=== PATIENT | female | born 1945 | race Two or more races ===

== ENCOUNTER 2019-06-12 07:55 | Emergency (ER) | payer OTHER ==
[~2019-06-12] VITALS: Ht 167.6 cm; Wt 48.1 kg
[2019-06-12] MEDS ORDERED: PROAIR HFA8.5 GM IH (08:03)
[2019-06-12] MEDS ORDERED: SINGULAIR10 MG PO (08:04)
[2019-06-12] MEDS ORDERED: HYDROCODONE-CH115 ML PO (09:25)
== END 2019-06-12 09:39 | disposition home or self-care (01) ==
LOC: ER 07:55
DX: J43.8 Other emphysema (principal)

== ENCOUNTER 2019-09-16 17:00 | Emergency (ER) | payer OTHER ==
[~2019-09-16] VITALS: Ht 149.9 cm; Wt 48.5 kg
[~2019-09-16 17:00] MED LIST: HYDROCODONE-CH115 ML PO; PROAIR HFA8.5 GM IH; SINGULAIR10 MG PO
[2019-09-16] MEDS ORDERED: SINGULAIR10 MG (17:34)
[2019-09-16] MEDS ORDERED: VERELAN180 MG (17:34)
[2019-09-16] MEDS ORDERED: CRESTOR5 MG (17:35)
[2019-09-16] MEDS ORDERED: ECOTRIN81 MG (17:35)
[2019-09-16] MEDS ORDERED: LEVOTHYROXINE25 MCG (17:36)
[2019-09-16] MEDS ORDERED: PROBIOTIC1 EAC1 (17:37)
[2019-09-16] MEDS ORDERED: BEVESPI AEROS10.7 GM (17:38)
[2019-09-16] MEDS ORDERED: [UNRECOGNIZED DRUG - OTHER] (17:38)
== END 2019-09-16 19:47 | disposition home or self-care (01) ==
LOC: ER 17:00
DX: Z03.818 Encounter for observation for suspected exposure to other biological agents ruled out (principal); B34.9 Viral infection, unspecified; R06.02 Shortness of breath

== ENCOUNTER 2020-04-14 08:01 | Outpatient (CLI) | payer OTHER ==
[~2020-04-14 08:01] MED LIST changes: +BEVESPI AEROS10.7 GM; +CRESTOR5 MG; +ECOTRIN81 MG; +LEVOTHYROXINE25 MCG; +PROBIOTIC1 EAC1; +SINGULAIR10 MG; +VERELAN180 MG; +[UNRECOGNIZED DRUG - OTHER]
== END 2020-04-14 08:15 | disposition home or self-care (01) ==
LOC: RX STUDY 08:01
PROVIDERS: ATTEND Internal Medicine Gastroenterology
DX: K21.9 Gastro-esophageal reflux disease without esophagitis (principal); R10.13 Epigastric pain

== ENCOUNTER 2020-12-01 12:05 | Outpatient (CLI) | payer OTHER | END 2020-12-01 12:21 | disposition home or self-care (01) | LOC: SONOGRAMA 12:05 | PROVIDERS: ATTEND Internal Medicine | DX: M54.2 Cervicalgia (principal); M46.1 Sacroiliitis, not elsewhere classified; M25.551 Pain in right hip; M25.552 Pain in left hip; N23 Unspecified renal colic ==

== ENCOUNTER 2021-05-24 13:56 | Outpatient (CLI) | payer OTHER | END 2021-05-24 14:18 | disposition home or self-care (01) | LOC: RAD 13:56 | PROVIDERS: ATTEND Internal Medicine Sports Medicine | DX: R10.84 Generalized abdominal pain (principal) ==

== ENCOUNTER 2021-09-20 17:50 | Emergency (ER) | payer OTHER ==
[~2021-09-20] VITALS: Ht 180.3 cm; Wt 53.1 kg
[2021-09-20] MEDS ORDERED: CELEXA20 MG (18:47)
== END 2021-09-21 01:02 | disposition home or self-care (01) ==
LOC: ER 17:50
DX: J44.1 Chronic obstructive pulmonary disease with (acute) exacerbation (principal); J44.0 Chronic obstructive pulmonary disease with (acute) lower respiratory infection; I11.0 Hypertensive heart disease with heart failure; I50.1 Left ventricular failure, unspecified; Z88.0 Allergy status to penicillin; Z91.011 Allergy to milk products; Z79.82 Long term (current) use of aspirin; Z20.822 Contact with and (suspected) exposure to COVID-19

== ENCOUNTER 2021-12-29 08:42 | Outpatient (CLI) | payer OTHER ==
[~2021-12-29 08:42] MED LIST changes: +CELEXA20 MG
== END 2021-12-29 08:47 | disposition home or self-care (01) ==
LOC: RX STUDY 08:42
PROVIDERS: ATTEND Otolaryngology
DX: R13.14 Dysphagia, pharyngoesophageal phase (principal)

== ENCOUNTER 2022-01-17 10:24 | Emergency (ER) | payer OTHER ==
[~2022-01-17] VITALS: Ht 147.3 cm; Wt 50.8 kg
== END 2022-01-17 16:00 | disposition home or self-care (01) ==
LOC: ER 10:24
DX: K59.00 Constipation, unspecified (principal); R10.84 Generalized abdominal pain; I10 Essential (primary) hypertension; Z88.0 Allergy status to penicillin; Z91.011 Allergy to milk products

== ENCOUNTER 2022-07-04 08:09 | Emergency (ER) | payer OTHER ==
[~2022-07-04] VITALS: Ht 147.3 cm; Wt 49.0 kg
[2022-07-04] MEDS ORDERED: PROTONIX40 MG (08:23)
== END 2022-07-04 15:19 | disposition home or self-care (01) ==
LOC: ER 08:09
DX: K59.00 Constipation, unspecified (principal); K57.30 Diverticulosis of large intestine without perforation or abscess without bleeding; N20.0 Calculus of kidney; E03.9 Hypothyroidism, unspecified; Z88.0 Allergy status to penicillin; Z91.011 Allergy to milk products

== ENCOUNTER 2022-09-28 14:18 | Emergency (ER) | payer OTHER ==
[~2022-09-28] VITALS: Ht 147.3 cm; Wt 47.2 kg
[~2022-09-28 14:18] MED LIST changes: +PROTONIX40 MG
[2022-09-28] MEDS ORDERED: XANAX0.25 MG (15:15)
[2022-09-28] MEDS ORDERED: LASIX20 MG (15:16)
[2022-09-28] MEDS ORDERED: CRESTOR5 MG (15:16)
[2022-09-28] MEDS ORDERED: VERELAN PM100 MG (15:16)
[2022-09-28] MEDS ORDERED: PROTONIX40 MG (15:16)
[2022-09-28] MEDS ORDERED: CELEXA40 MG (15:16)
[2022-09-28] MEDS ORDERED: SYNTHROID50 MCG (15:18)
== END 2022-09-28 21:15 | disposition home or self-care (01) ==
LOC: ER 14:18
DX: J44.1 Chronic obstructive pulmonary disease with (acute) exacerbation (principal); Z88.0 Allergy status to penicillin; Z91.011 Allergy to milk products; Z20.822 Contact with and (suspected) exposure to COVID-19

== ENCOUNTER 2022-11-01 12:20 | Outpatient (CLI) | payer OTHER ==
[~2022-11-01 12:20] MED LIST changes: +CELEXA40 MG; +LASIX20 MG; +SYNTHROID50 MCG; +VERELAN PM100 MG; +XANAX0.25 MG
== END 2022-11-01 12:24 | disposition home or self-care (01) ==
LOC: RAD 12:20
PROVIDERS: ATTEND Urology
DX: N20.0 Calculus of kidney (principal)

== ENCOUNTER 2022-11-07 09:13 | Outpatient (CLI) | payer OTHER | END 2022-11-07 09:30 | disposition home or self-care (01) | LOC: RAD 09:13 | PROVIDERS: ATTEND Urology | DX: N20.0 Calculus of kidney (principal) ==

== ENCOUNTER 2022-11-11 11:06 | Emergency (ER) | payer OTHER ==
[~2022-11-11] VITALS: Ht 147.3 cm; Wt 46.3 kg
== END 2022-11-11 15:48 | disposition home or self-care (01) ==
LOC: ER 11:06
DX: J44.1 Chronic obstructive pulmonary disease with (acute) exacerbation (principal); Z91.011 Allergy to milk products; Z88.0 Allergy status to penicillin; E78.00 Pure hypercholesterolemia, unspecified; I10 Essential (primary) hypertension; E03.9 Hypothyroidism, unspecified; Z20.822 Contact with and (suspected) exposure to COVID-19

== ENCOUNTER 2023-01-16 12:08 | Emergency (ER) | payer OTHER ==
[~2023-01-16] VITALS: Ht 149.9 cm; Wt 45.4 kg
== END 2023-01-16 20:18 | disposition home or self-care (01) ==
LOC: ER 12:08
DX: J44.9 Chronic obstructive pulmonary disease, unspecified (principal); I10 Essential (primary) hypertension; E03.9 Hypothyroidism, unspecified; Z88.0 Allergy status to penicillin; Z91.011 Allergy to milk products
CPT/HCPCS: 36415; 71045; 74240; 82803; 96365; 99284; J1885; J3490

== ENCOUNTER 2023-01-18 14:11 | Outpatient (CLI) | payer OTHER | END 2023-01-18 14:30 | disposition home or self-care (01) | LOC: TOM 14:11 | DX: M54.59 Other low back pain (principal); M54.6 Pain in thoracic spine ==

== ENCOUNTER 2023-01-26 08:39 | Outpatient (CLI) | payer OTHER | END 2023-01-26 09:00 | disposition home or self-care (01) | LOC: MRI 08:39 | DX: M51.34 Other intervertebral disc degeneration, thoracic region (principal); M81.0 Age-related osteoporosis without current pathological fracture | CPT/HCPCS: 72146 ==

== ENCOUNTER 2023-03-07 19:03 | Inpatient (IN) | payer OTHER ==
[~2023-03-07] VITALS: Ht 147.3 cm; Wt 38.6 kg
--- NOTE | 2023-03-07 19:18 | NUR ---
PTE ALERTA,ESTABLE Y ORIENTADA.ESTA REFIERE QUE DESDE HACE 2 ESCOBAR COMENZO CON EL DOLOR EN EL AREA DEL [facility] Y ABD
--- NOTE | 2023-03-07 21:05 | NUR ---
SE EDUCA PTE SOBRE TX MEDICO ESTA REFIERE ENTENDER. SE HELEN MUESTRAS DE LABORATORIO UTILIZANDO MEDIDAS ASEPTICAS. SE NOTIFICA ESTUDIO DE CT PENDIENTE
[2023-03-07 21:06] LABS: MEAN CELL VOLUME 80.7 fL (80.00-100.00); MEAN CORPUSCULAR HEMOGLOBIN 26.9 pg (27.00-32.0); MEAN CORPUSCULAR HGB CONC 33.3 g/dl (32.0-36.0); PLATELET COUNT 297 K/uL (150-450); RED BLOOD COUNT 4.83 M/uL (4.00-6.00); RED CELL DISTRIBUTION WIDTH 15.9 % (11.5-14.5)
[2023-03-07 21:41] LABS: PH,URINE 5.5 (5.0-8.0); URINE APPEARANCE Clear; URINE BILIRRUBIN Negative (NEGATIVE); URINE BLOOD Negative; URINE COLOR Dark Yellow; URINE GLUCOSE Negative (NEGATIVE); URINE LEUKOCYTE Moderate; URINE NITRATE Negative; URINE PROTEIN Trace (NEGATIVE); URINE UROBILINOGEN 0.2 E.U./dl
[2023-03-07 21:41] LABS: ALBUMIN 3.7 gm/dL (3.4-5.0); BILIRUBIN TOTAL 1.07 mg/dL (0.3-1.2); CALCIUM 10.3 mg/dL (8.5-10.1); CREATININE SERUM 0.82 mg/dL (0.55-1.02); GFR 67.42; GLOBULINA 3.7 G/DL (2.4-3.5); POTASSIUM 3.96 mEq/L (3.5-5.1); TOTAL PROTEIN 7.4 gm/dL (6.4-8.2)
[2023-03-07 21:44] LABS: URINE BACTERIA 104.5 uL (0.0-1933); URINE EPITHELIAL CELLS 16.8 uL (0.0-38.8); URINE RBC 3.7 uL (0.0-20.8); URINE WBC 34.7 uL (0.0-23.2)
[2023-03-07 21:56] LABS: URINE CRYSTALS FEW /HPF; URINE MUCUS MODERATE
--- NOTE | 2023-03-08 | NUR ---
SE RECIBE PTE ALERTA Y ORIENTADA X3 EN PABLITO CON BARANDAS ELEVADAS. PTE EN ESPERA DE REALIZAR EKG PENDIENTE PARA RE EVALUACION MEDICA.
--- NOTE | 2023-03-08 07:06 | NUR ---
SE RECIBE PTE ALERTA Y ORIENTADA X3 EN POSICON SEMIFOWLER CON BARANDAS ELEVADAS.
--- NOTE | 2023-03-08 09:48 | NUR ---
SE LILIAM MEDICAMENTO Y SE ORIENTA SOBRE EL MISMO REFIERE ENTENDER
--- NOTE | 2023-03-08 13:36 | NUR ---
SE ORIENTA PTE SOBRE LA IMPORTACIA DE COLOR DEBBI NGT LA CUAL COLOCA EFECTIVAMENTE SE ENCUENTRA EN ORIFICIO RT EL MISMO SE OSCULTA SE ENCUENTRA EN CITIO INSERTADO [place] 55 AL [place] DE COLOCARLO ELIMINANDO 50ML COLOR SEGOVIA JAMIN. SE MANPREET PACIENTE EN POSICION SEMIFOWLER EN COMPANIA DE FAMILIAR CONECTADO A SUCCION INTERMITENTE.
--- NOTE | 2023-03-08 16:19 | NUR ---
1500 SE REICBE PTE FEMENINA ALERTA Y ORIENTADA X3 DEL TURNO ANTERIOR, SE OBSERVA CON UEN PATRON RESPIRATORIO Y SIN QUEJA DE DOLOR AL MOMENTO. SE OBSERVA PTE CON NGT EN KAIT R+, TAMANO F#16 CON SUCCION INTERMITENTE. SE VERIFICA VIA AUSCULTACION. VENOPUNCION PATENTE, LEESA DE EDEMA Y ERITEMA EN H/L. PTE EN CAMA NIVEL MAS BAJO CON BARANDAS ELEVADAS Y FRENOS COLOCADOS POR SEGURIDAD. PENDIENTE CONSULTA CON MEDICINA INTERNA YA NOTIFICADA.
[2023-03-08 20:26] LABS: INR 1.04; PARTIAL THROMBOPLASTIN TIME 26.2 SECONDS (22.0-34.0); PROTHROMBIN TIME 10.9 SECONDS (9.0-11.5)
[2023-03-09 17:16] LABS: CALCIUM 9.3 mg/dL (8.5-10.1); CREATININE SERUM 0.63 mg/dL (0.55-1.02); GFR 91.39; POTASSIUM 4.17 mEq/L (3.5-5.1)
[2023-03-12 07:46] LABS: HEMATOCRIT 32.7 % (36.0-45.00); MEAN CORPUSCULAR HGB CONC 33.7 g/dl (32.0-36.0); PLATELET COUNT 229 K/uL (150-450); RED BLOOD COUNT 4.08 M/uL (4.00-6.00); RED CELL DISTRIBUTION WIDTH 15.9 % (11.5-14.5)
[2023-03-12 08:06] LABS: MEAN CELL VOLUME 80.3 fL (80.00-100.00); MEAN CORPUSCULAR HEMOGLOBIN 26.9 pg (27.00-32.0)
[2023-03-12 08:38] LABS: ALBUMIN 2.7 gm/dL (3.4-5.0); BILIRUBIN TOTAL 0.69 mg/dL (0.3-1.2); CALCIUM 8.9 mg/dL (8.5-10.1); CREATININE SERUM 0.72 mg/dL (0.55-1.02); GFR 78.34; GLOBULINA 2.4 G/DL (2.4-3.5); POTASSIUM 4.15 mEq/L (3.5-5.1); TOTAL PROTEIN 5.1 gm/dL (6.4-8.2)
== END 2023-03-15 17:35 | disposition home or self-care (01) | DRG 392 ==
LOC: ER 19:03 → MEDI 03-08 19:09 → SEC-K 03-08 19:09 → MEDI 03-08 20:00
PROVIDERS: General Practice; ADMIT Specialist; ATTEND Specialist
PROC: 0D9670Z Drainage of Stomach with Drainage Device, Via Natural or Artificial Opening (ICD-10-PCS; principal; 2023-03-09)
PROC: 02HV33Z Insertion of Infusion Device into Superior Vena Cava, Percutaneous Approach (ICD-10-PCS; 2023-03-12)
DX: K59.00 Constipation, unspecified (principal); J44.1 Chronic obstructive pulmonary disease with (acute) exacerbation; K56.609 Unspecified intestinal obstruction, unspecified as to partial versus complete obstruction; K63.89 Other specified diseases of intestine; I10 Essential (primary) hypertension

== ENCOUNTER 2023-05-17 14:26 | Outpatient (CLI) | payer OTHER | END 2023-05-17 15:55 | disposition home or self-care (01) | LOC: SONOGRAMA 14:26 | PROVIDERS: ATTEND Internal Medicine Hematology & Oncology | DX: C80.1 Malignant (primary) neoplasm, unspecified (principal); M51.34 Other intervertebral disc degeneration, thoracic region; M51.36 Other intervertebral disc degeneration, lumbar region; M80.88XS Other osteoporosis with current pathological fracture, vertebra(e), sequela; R59.0 Localized enlarged lymph nodes ==

== ENCOUNTER 2024-01-15 16:25 | Emergency (ER) | payer OTHER ==
[~2024-01-15] VITALS: Ht 147.3 cm; Wt 37.2 kg
[2024-01-15 17:54] LABS: URINE APPEARANCE Clear; URINE BILIRRUBIN Negative (NEGATIVE); URINE BLOOD Negative; URINE COLOR Yellow; URINE GLUCOSE Negative (NEGATIVE); URINE KETONE Negative (NEGATIVE); URINE LEUKOCYTE Negative; URINE NITRATE Negative; URINE PROTEIN Negative (NEGATIVE); URINE UROBILINOGEN 0.2 E.U./dl
[2024-01-15 17:57] LABS: URINE RBC 2.4 uL (0.0-20.8)
[2024-01-15 18:09] LABS: URINE BACTERIA 1.2 uL (0.0-1933); URINE CAST 0.15 uL (0.0-1.40); URINE EPITHELIAL CELLS 0.6 uL (0.0-38.8); URINE WBC 0.9 uL (0.0-23.2)
[2024-01-15 18:12] LABS: ABG PH 7.408 (7.35-7.45); ABG PO2 91.5 mmHg (80-100); ABG pCO2 47.2 mmHg (35-45); BASE EXCESS 3.6 mmol/l; BICARBONATE 29.1 mmol/l (23-25); SaO2 97.2 %; Tco2 30.6 mmol/l
[2024-01-15 18:13] LABS: HEMATOCRIT 40.4 % (36.0-45.00); HEMOGLOBIN 13.5 g/dL (12.0-15.00); MEAN CELL VOLUME 83.4 fL (80.00-100.00); MEAN CORPUSCULAR HEMOGLOBIN 27.8 pg (27.00-32.0); MEAN CORPUSCULAR HGB CONC 33.4 g/dl (32.0-36.0); PLATELET COUNT 230 K/uL (150-450); RED BLOOD COUNT 4.84 M/uL (4.00-6.00); RED CELL DISTRIBUTION WIDTH 16.4 % (11.5-14.5)
[2024-01-15 18:13] LABS: o2 28 %; puncture site BRADIAL LEFT
[2024-01-15 18:34] LABS: ALBUMIN 4.1 gm/dL (3.4-5.0); BILIRUBIN TOTAL 1.01 mg/dL (0.3-1.2); CALCIUM 9.7 mg/dL (8.5-10.1); CREATININE SERUM 0.61 mg/dL (0.55-1.02); GFR 94.61; GLOBULINA 3.6 G/DL (2.4-3.5); POTASSIUM 4.38 mEq/L (3.5-5.1); TOTAL PROTEIN 7.7 gm/dL (6.4-8.2)
[2024-01-15] MEDS ORDERED: METHYLPREDNISOLONE SOD SUCC 125 MG VIAL ONE (19:11)
[2024-01-15] MEDS ORDERED: METHYLPREDNISOLONE SOD SUCC 125 MG VIAL IV ONE (19:15)
[2024-01-15] MEDS ORDERED: LEVALBUTEROL HCL 1.25 MG/3 ML SOLUTION IH SCH (19:15)
[2024-01-15] MEDS ORDERED: LEVALBUTEROL HCL 1.25 MG/3 ML SOLUTION IH ONE ×2 (19:39→19:43)
== END 2024-01-15 20:32 | disposition home or self-care (01) ==
LOC: ER 16:27
PROVIDERS: General Practice
DX: J44.1 Chronic obstructive pulmonary disease with (acute) exacerbation (principal); R53.83 Other fatigue; Z20.822 Contact with and (suspected) exposure to COVID-19; I10 Essential (primary) hypertension; E03.8 Other specified hypothyroidism; Z88.0 Allergy status to penicillin; Z88.6 Allergy status to analgesic agent; Z91.011 Allergy to milk products
CPT/HCPCS: 36415; 71046; 82803; 94640; 96365; 99283; J3490

== ENCOUNTER → 2024-11-18 | Outpatient (CLI) | payer OTHER | END | disposition home or self-care (01) | LOC: SONOGRAMA 08:04 | PROVIDERS: ATTEND Pathology Anatomic Pathology | DX: D34 Benign neoplasm of thyroid gland (principal); E07.89 Other specified disorders of thyroid; E04.1 Nontoxic single thyroid nodule ==